=== PATIENT | female | born 1950 | race Caucasian/White ===

== ENCOUNTER → 2016-09-26 | Outpatient (CLI) | payer BC ==
[~2016-09-26] MED LIST: ASPI-611 PO; ATOR10TA64 PO; DIME50TA PO; ESCI10TA44 PO; GLYB-66 PO; LISI-127 PO; METF-206 PO; METH500T4 PO; OXYC1TAB8 PO; POTA2TAB18 PO; [UNRECOGNIZED DRUG - CODE] PO
== END ==
LOC: WC.BC 11:04
PROVIDERS: ATTEND Internal Medicine Hematology & Oncology
DX: C50.812 Malignant neoplasm of overlapping sites of left female breast (principal); N64.59 Other signs and symptoms in breast; Z08 Encounter for follow-up examination after completed treatment for malignant neoplasm; C50.911 Malignant neoplasm of unspecified site of right female breast
CPT/HCPCS: 77061; G0206